=== PATIENT | female | born 1950 | race Caucasian/White ===

== ENCOUNTER 2016-07-31 09:32 | Emergency (ER) | payer MEDICARE ==
[2016-07-31 09:42] VITALS: BP 156/72
--- NOTE | 2016-07-31 09:51 | UC ---
Ear Complaint HPI - HPI Summary HPI Summary: R ear feeling increasingly plugged for several weeks, has had problems with wax buildup in that ear in the past. Denies nasal kody, URI, or allergies. - History of Current Complaint Chief Complaint: UCEar Stated Complaint: PLUGGED EAR Time Seen by Provider: 07/31/16 09:35 Hx Obtained From: Patient ?: No Onset/Duration: Gradual Onset, Lasting Weeks Severity Initially: Mild Severity Currently: Mild Aggravating Factors: Nothing Alleviating Factors: Nothing Associated Signs/Symptoms: Positive: Hearing Loss - Allergies/Home Medications Allergies/Adverse Reactions: Allergies Allergy/AdvReac Type Severity Reaction Status Date / Time Hydrochlorothiazide Allergy Severe See Comment Verified 07/31/16 09:42 w/Triamterene [From Triamterene/Hydrochlorothiazide] Hydrocortisone Allergy Severe Pain Verified 07/31/16 09:42 Latex Allergy Severe Hives, Verified 07/31/16 09:42 ITCHY, BURNING Lisinopril Allergy Severe TONGUE Verified 07/31/16 09:42 SWELL, DIFFICULTY SWALLOWING Mometasone Allergy Severe DRAINING Verified 07/31/16 09:42 INTO THROAT, METALLIC TASTE, DRY THROAT Albuterol Allergy Intermediate Congestion Verified 07/31/16 09:42 Atenolol Allergy Intermediate Rash And Verified 07/31/16 09:42 Itching Triamcinolone [From Nasacort] Allergy Intermediate Rash Verified 07/31/16 09:42 Prednisone Allergy Mild See Comment Verified 07/31/16 09:42 iv iodine Allergy Intermediate Rash And Uncoded 07/31/16 09:42 Itching omnipaque Allergy Intermediate rash,itchin Uncoded 07/31/16 09:42 g BLACK PEPPER Allergy Sneezing Uncoded 07/31/16 09:42 TEGADERM TAPE Allergy Rash And Uncoded 07/31/16 09:42 Itching PMH/Surg Hx/FS Hx/Imm Hx Endocrine History Of: Denies: Diabetes Cardiovascular History Of: Reports: Hypertension, Congestive Heart Failure - R/ T CHEMO 11/2011-07/2012 Respiratory History Of: Denies: COPD Cancer History Of: Denies: Breast Cancer Other History Of: Negative For: Anticoagulant Therapy - Surgical History Surgical History: Yes Surgery Procedure, Year, and Place: hysterectomy 10/2011 [place]. carpal tunnel left 2008 [facility] [place]. LEFT TKR 11/2013 [facility] [place]. POWER PORT INSERTION 2011 [facility] [place]. TUBAL 1979 [facility] [place] - Family History Known Family History: Positive: Hypertension - Social History Occupation: Retired Alcohol Use: Rare Alcohol Amount: MAYBE 3 DRINKS/YR Substance Use Type: None Smoking Status (MU): Former Smoker Type: Cigarettes Amount Used/How Often: 1/2 PPD Length of Time of Smoking/Using Tobacco: 30 YRS Have You Smoked in the Last Year: No When Did the Patient Quit Smoking/Using Tobacco: 2000 - Immunization History Most Recent Influenza Vaccination: 2012 Most Recent Tetanus Shot: 2009 Most Recent Pneumonia Vaccination: NONE Review of Systems Constitutional: Negative Skin: Negative Eyes: Negative ENT: Ear Ache Respiratory: Negative Cardiovascular: Negative Gastrointestinal: Negative Genitourinary: Negative Motor: Negative Neurovascular: Negative Musculoskeletal: Negative Neurological: Negative Psychological: Negative All Other Systems Reviewed And Are Negative: Yes Physical Exam Triage Information Reviewed: Yes Appearance: Well-Appearing, No Pain Distress, Obese Vital Signs: Initial Vital Signs Temp 97.5 F 07/31/16 09:36 Pulse 95 07/31/16 09:36 Resp 20 07/31/16 09:36 BP 156/72 07/31/16 09:36 Pulse Ox 96 07/31/16 09:36 Vital Signs Reviewed: Yes Eye Exam: Normal Eyes: Positive: Conjunctiva Clear ENT: Positive: Pharynx normal, TMs normal - post-flush bilat TMs normal, Other: - R cerumen impaction. Negative: Nasal congestion, Nasal drainage Dental Exam: Normal Neck exam: Normal Neck: Positive: Supple, Nontender, No Lymphadenopathy Respiratory Exam: Normal Respiratory: Positive: Chest non-tender, Lungs clear, Normal breath sounds, No respiratory distress, No accessory muscle use Cardiovascular Exam: Normal Cardiovascular: Positive: RRR, No Murmur Musculoskeletal Exam: Normal Neurological Exam: Normal Neurological: Positive: Alert Psychological Exam: Normal Skin Exam: Normal Ear Complaint Course/Dx - Differential Dx/Diagnosis Provider Diagnoses: R cerumen impaction Discharge - Discharge Plan Condition: Stable Disposition: HOME Patient Education Materials: Cerumen Impaction (ED) Referrals: Derrell Monge MD [Primary Care Provider] - Additional Instructions: If you have new pain, drainage from the ear, fevers, or other problems, please see your primary care provider or Dr. Egan.
== END 2016-07-31 10:03 | disposition home or self-care (01) ==
LOC: UCEAST 09:32
DX: H61.21 Impacted cerumen, right ear (principal); Z87.891 Personal history of nicotine dependence; Z88.1 Allergy status to other antibiotic agents; Z88.8 Allergy status to other drugs, medicaments and biological substances; I10 Essential (primary) hypertension; I50.9 Heart failure, unspecified
CPT/HCPCS: 99212; G0463

== ENCOUNTER 2016-08-02 12:58 | Emergency (ER) | payer MEDICARE ==
[2016-08-02 13:08] VITALS: BP 150/70
--- NOTE | 2016-08-02 13:59 | UC ---
Ear Complaint HPI - HPI Summary HPI Summary: 66 female presents with complaints of right ear feeling plugged since yesterday and worsened this morning. Patient was seen here on Monday and had ear irrigated. Patient's ear discomfort was relieved and felt better until it began again yesterday 08/01/16. Patient has been using olive oil in her ears for itching and to lubricate her canal. She has had similar problems with her ears in the past, of dry skin and wax build up. Patient used to see Dr Egan for this. Denies any other complaints at this time. Denies discharge from ear, and complete hearing loss. Denies dizziness, fever/chills and ear pain. - History of Current Complaint Chief Complaint: UCEar Stated Complaint: PLUGGED EAR Time Seen by Provider: 08/02/16 13:08 Hx Obtained From: Patient ?: No Onset/Duration: Sudden Onset, Lasting Days - 1, Worse Since Severity Initially: Mild Severity Currently: Mild Pain Intensity: 1 Pain Scale Used: 0-10 Numeric Aggravating Factors: Nothing Alleviating Factors: Nothing Associated Signs/Symptoms: Positive: Hearing Loss - muffled/plugged like being under water. Negative: Discharge, Foreign Body Sensation, Trauma to Ear - Allergies/Home Medications Allergies/Adverse Reactions: Allergies Allergy/AdvReac Type Severity Reaction Status Date / Time Hydrochlorothiazide Allergy Severe See Comment Verified 07/31/16 09:42 w/Triamterene [From Triamterene/Hydrochlorothiazide] Hydrocortisone Allergy Severe Pain Verified 07/31/16 09:42 Latex Allergy Severe Hives, Verified 07/31/16 09:42 ITCHY, BURNING Lisinopril Allergy Severe TONGUE Verified 07/31/16 09:42 SWELL, DIFFICULTY SWALLOWING Mometasone Allergy Severe DRAINING Verified 07/31/16 09:42 INTO THROAT, METALLIC TASTE, DRY THROAT Albuterol Allergy Intermediate Congestion Verified 07/31/16 09:42 Atenolol Allergy Intermediate Rash And Verified 07/31/16 09:42 Itching Triamcinolone [From Nasacort] Allergy Intermediate Rash Verified 07/31/16 09:42 Prednisone Allergy Mild See Comment Verified 07/31/16 09:42 iv iodine Allergy Intermediate Rash And Uncoded 07/31/16 09:42 Itching omnipaque Allergy Intermediate rash,itchin Uncoded 07/31/16 09:42 g BLACK PEPPER Allergy Sneezing Uncoded 07/31/16 09:42 TEGADERM TAPE Allergy Rash And Uncoded 07/31/16 09:42 Itching PMH/Surg Hx/FS Hx/Imm Hx Endocrine History Of: Denies: Diabetes Cardiovascular History Of: Reports: Hypertension, Congestive Heart Failure - R/ T CHEMO 11/2011-07/2012 Respiratory History Of: Denies: COPD Cancer History Of: Denies: Breast Cancer Other History Of: Negative For: Anticoagulant Therapy - Surgical History Surgical History: Yes Surgery Procedure, Year, and Place: hysterectomy 10/2011 [place]. carpal tunnel left 2008 [facility]. LEFT TKR 11[place] [facility] [place]OWER PORT INSERTION 2011 [facility] [place] TUBAL 1979 [facility] [place] - Family History Known Family History: Positive: Hypertension - Social History Alcohol Use: Rare Alcohol Amount: MAYBE 3 DRINKS/YR Substance Use Type: None Smoking Status (MU): Former Smoker Type: Cigarettes Amount Used/How Often: 1/2 PPD Length of Time of Smoking/Using Tobacco: 30 YRS Have You Smoked in the Last Year: No When Did the Patient Quit Smoking/Using Tobacco: 2000 - Immunization History Most Recent Influenza Vaccination: 2012 Most Recent Tetanus Shot: 2009 Most Recent Pneumonia Vaccination: NONE Review of Systems Constitutional: Negative Skin: Negative Eyes: Negative ENT: Ear Ache Respiratory: Negative Cardiovascular: Negative Neurological: Negative All Other Systems Reviewed And Are Negative: Yes Physical Exam Triage Information Reviewed: Yes Appearance: Well-Appearing, No Pain Distress, Well-Nourished, Obese Vital Signs: Initial Vital Signs Temp 96.4 F 08/02/16 13:04 Pulse 102 08/02/16 13:04 Resp 18 08/02/16 13:04 BP 150/70 08/02/16 13:04 Pulse Ox 98 08/02/16 13:04 BP and tachycardia noted, patient's vitals were right after exertion. diagnosed with HTN. patient uses walker to walk. Vital Signs Reviewed: Yes Eyes: Positive: Conjunctiva Clear ENT: Positive: Hearing grossly normal, Pharynx normal, TMs normal - EAC of right ear- cerumen and dry skin, erythematous does not appear infected at this time. possible eczema. Negative: Pharyngeal erythema, Nasal congestion, Nasal drainage, TM bulging, TM dull, TM red, Tonsillar exudate, Muffled/hoarse voice Dental: Negative: Cervical Lymphadenopathy Neck: Positive: Supple, Nontender Respiratory: Positive: Chest non-tender, Lungs clear, Normal breath sounds Cardiovascular: Positive: RRR, No Murmur, Pulses Normal Musculoskeletal: Positive: Strength Intact, ROM Intact Neurological: Positive: Alert Skin Exam: Normal Ear Complaint Course/Dx - Course Course Of Treatment: R ear was irrigated by Vanessa RANDALL. EAC of right ear clear without cerumen and dry skin. Prescribed Debrox drops to apply to rpevent build up. Can continue olive oil if helps lubricate and with itching. Recommend to make an appointment with primary care provider or Dr Egan to discuss further chronic treatment. Aware of worsening signs and symptoms such as infection, dizziness or complete hearing loss. - Differential Dx/Diagnosis Differential Diagnosis/HQI/PQRI: Cerumen Impaction, Otitis Externa, Otitis Media , Perforated TM, Other Provider Diagnoses: R cerumen impaction Discharge - Discharge Plan Condition: Stable Disposition: HOME Prescriptions: Carbamide Peroxide 6.5% OTIC* [DEBROX 6.5% Otic*] 5 drop BOTH EARS BID #1 bottle Patient Education Materials: Cerumen Impaction (ED) Referrals: Derrell Monge MD [Primary Care Provider] - Joaquín Egan MD [Medical Doctor] - Additional Instructions: Use prescribed ear drops as directed, it is also sold over the counter as "Debrox" for ear wax. It will help with ear wax build up and keeping ear canals clean. Do not submerge ears under water. If symptoms worsen or do not improve please follow up with PCP or Dr. Egan.
== END 2016-08-02 14:15 | disposition home or self-care (01) ==
LOC: UCEAST 12:58
DX: H61.21 Impacted cerumen, right ear (principal); I10 Essential (primary) hypertension; I50.9 Heart failure, unspecified; Z90.710 Acquired absence of both cervix and uterus; E66.9 Obesity, unspecified; Z88.8 Allergy status to other drugs, medicaments and biological substances; Z91.040 Latex allergy status; Z87.891 Personal history of nicotine dependence
CPT/HCPCS: 99213; G0463

== ENCOUNTER 2017-11-12 14:19 | Emergency (ER) | payer MEDICARE ==
[2017-11-12 14:30] VITALS: BP 147/82
--- NOTE | 2017-11-12 15:48 | UC ---
Skin Complaint HPI - HPI Summary HPI Summary: 1. OVER A WEEK OF WAXING AND WANING LEFT LOWER LIP SWELLING. DOES HAVE A H/O COLD SORES BUT NOT IN THIS SPOT AND THERE IS NO CLEAR LESION. 2. OVER 2 WEEKS OF 3 INFLAMED RED OVAL LESIONS RIGHT PALM. ITCH AND BURN. USES A WALKER FOR MOBILITY AND HANDS SEEM TO REST ON THE HARD PLASTIC HANDLES WHERE THE LESIONS ARE. THINKS SHE HAD SOMETHING SIMILAR BEFORE AND IT WENT AWAY ON ITS OWN. ALSO REPORTS SHE CLEANED THE WALKER WITH BLEACH WIPES AND MAY NOT HAVE WIPED IT DOWN WELL AFTERWARDS. 3. 3 DAYS OF RED SPOTS ON HER TOES. NOT ITCHY OR PAINFUL BUT PT HAS PERIPHERAL NEUROPATHY. NO RECENT TRAVEL. HAS BEEN ON BACTRIM FOR 3 DAYS FOR UTI. - History of Current Complaint Chief Complaint: UCSkin Time Seen by Provider: 11/12/17 14:44 Stated Complaint: RASH Hx Obtained From: Patient Onset/Duration: Gradual Onset, Lasting Days, Still Present Timing: Constant Onset Severity: Moderate Current Severity: Moderate Pain Intensity: 8 Pain Scale Used: 0-10 Numeric Aggravating Factor(s): Nothing Alleviating Factor(s): Nothing Associated Signs & Symptoms: Positive: Rash, Tenderness - Allergy/Home Medications Allergies/Adverse Reactions: Allergies Allergy/AdvReac Type Severity Reaction Status Date / Time albuterol Allergy Congestion Verified 11/12/17 14:38 atenolol Allergy Rash And Verified 11/12/17 14:38 Itching hydrochlorothiazide Allergy See Comment Verified 11/12/17 14:38 latex Allergy Hives Verified 11/12/17 14:38 lisinopril Allergy Swelling Verified 11/12/17 14:38 mometasone furoate Allergy Unknown Verified 11/12/17 14:38 Reaction Details prednisone Allergy Unknown Verified 11/12/17 14:38 Reaction Details triamcinolone [From Nasacort] Allergy Rash Verified 11/12/17 14:38 iv iodine Allergy Intermediate Rash And Uncoded 11/12/17 14:38 Itching omnipaque Allergy Intermediate rash,itchin Uncoded 11/12/17 14:38 g BLACK PEPPER Allergy Sneezing Uncoded 11/12/17 14:38 TEGADERM TAPE Allergy Rash And Uncoded 11/12/17 14:38 Itching Home Medications: Home Medications Sulfamethox/Trimethoprim DS* [Bactrim DS 800/160 TAB*] 1 tab PO BID 11/12/17 [ History Confirmed 11/12/17] Review of Systems Constitutional: Negative Skin: Rash Respiratory: Negative Cardiovascular: Negative Gastrointestinal: Negative All Other Systems Reviewed And Are Negative: Yes PMH/Surg Hx/FS Hx/Imm Hx Cardiovascular History: Hypertension Other Cancer History: UTERINE CANCER Other History Of: Negative For: Anticoagulant Therapy - Surgical History Surgical History: Yes Surgery Procedure, Year, and Place: hysterectomy 10/2011 [place]. carpal tunnel left 2008 [facility] [place]. LEFT TKR 11/2013 [facility] [place]. POWER PORT INSERTION 2011 [facility] [place]. TUBAL 1979 [facility] [place] - Family History Known Family History: Positive: Hypertension - Social History Alcohol Use: Rare Alcohol Amount: MAYBE 3 DRINKS/YR Substance Use Type: None Smoking Status (MU): Former Smoker Type: Cigarettes Amount Used/How Often: 1/2 PPD Length of Time of Smoking/Using Tobacco: 30 YRS Have You Smoked in the Last Year: No When Did the Patient Quit Smoking/Using Tobacco: 2000 - Immunization History Most Recent Influenza Vaccination: 2012 Most Recent Tetanus Shot: 2009 Most Recent Pneumonia Vaccination: NONE Physical Exam Triage Information Reviewed: Yes Appearance: Well-Appearing, No Pain Distress, Well-Nourished Vital Signs: Initial Vital Signs Temp 97.4 F 11/12/17 14:27 Pulse 100 11/12/17 14:27 Resp 18 11/12/17 14:27 BP 147/82 11/12/17 14:27 Pulse Ox 98 11/12/17 14:27 Vital Signs Reviewed: Yes Eyes: Positive: Conjunctiva Clear ENT: Positive: Hearing grossly normal Neck: Positive: Supple Respiratory: Positive: No respiratory distress, No accessory muscle use Cardiovascular: Positive: Pulses Normal Abdomen Description: Positive: Soft Musculoskeletal: Positive: No Edema Neurological: Positive: Alert Psychological: Positive: Age Appropriate Behavior Skin: Positive: Other - LEFT LOWER LIP EDEMATOUS AND TENDER. 3 WELL CIRCUMSCRIBED ERYTHEMATOUS OVAL LESIONS PALM RIGHT HAND. SLIGHTLY RAISED AND FIRM. MILDLY TENDER. TOES WITH PATCHES OF ERYTHEMA. FLAT. NOT TENDER. Course/Dx - Diagnoses Provider Diagnoses: 1. LEFT LOWER LIP EDEMA. 2. RIGHT HAND, LEFT FOOT DERMATITIS, NOS Discharge - Sign-Out/Discharge Documenting (check all that apply): Patient Departure All imaging exams completed and their final reports reviewed: No Studies - Discharge Plan Condition: Stable Disposition: HOME Prescriptions: Triamcinolone 0.1% CREAM(NF) [Kenalog Cream 0.1%(NF)] 1 applic TOPICAL BID PRN # 1 tube PRN Reason: Itching Patient Education Materials: Dermatitis (ED) Referrals: Derrell Monge MD [Primary Care Provider] - If Needed Additional Instructions: YOU SEEM TO HAVE 3 DISTINCT CONDITIONS. 1. YOUR LIP SWELLING COULD BE DUE TO AN ALLERGIC REACTION OR MECHANICAL TRAUMA. STOP BITING YOUR LIP AND TAKE A CLARITIN DAILY. APPLY COOL COMPRESSES FOR RELIEF. 2. THE SPOTS ON YOUR HANDS MAY BE DUE TO CHRONIC PRESSURE FROM USING YOUR WALKER IN ADDITION TO POSSIBLE IRRITATION FROM BLEACH WIPES. TRY TO EASE UP ON YOUR CUSTOMS DIRECTOR AND PAD THE HANDLES. APPLY TOPICAL STEROID CREAM TO HELP CALM THE INFLAMMATION. 3. UNCLEAR ETIOLOGY OF THE RED SPOTS ON YOUR TOES. KEEP YOUR FEET COOL, CLEAN AND DRY. FOLLOW-UP WITH DERMATOLOGY [place]. [place] DR. SHAWANDA WIGGINS [facility], [facility] [address] [place] [address] Dr. Stephie Hawkins [place] Address: [address] [place] [address] [address] [place] [address] DR. IMELDA MORENO [facility] Dermatology [address] [place] [address] [address] [place] [address] Dorina Wooten DERMATOLOGY [place] DR. JENNIFER FONG [phone] - Billing Disposition and Condition Condition: STABLE Disposition: Home
== END 2017-11-12 15:48 | disposition home or self-care (01) ==
LOC: UCEAST 14:19
DX: L30.9 Dermatitis, unspecified (principal); R60.0 Localized edema; Z88.8 Allergy status to other drugs, medicaments and biological substances; Z91.040 Latex allergy status; Z91.041 Radiographic dye allergy status; Z91.09 Other allergy status, other than to drugs and biological substances; Z91.018 Allergy to other foods; Z87.891 Personal history of nicotine dependence
CPT/HCPCS: 99212; G0463